=== PATIENT | female | born 1960 | race Caucasian/White ===

== ENCOUNTER 2024-02-11 16:13 | Emergency (ER) | payer MEDICAID, SELFPAY ==
[2024-02-11 16:17] VITALS: BP 168/93; PULSE 76; RESP 17; TEMP 36.6; O2SAT 93; BMI 25.6
[2024-02-11 16:26] VITALS: PULSE 74; RESP 18; O2SAT 96
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
== END 2024-02-11 18:17 | disposition home or self-care (01) ==
PROVIDERS: Emergency Provider Emergency Medicine; PCP Physician Assistant
DX: S13.4XXA Sprain of ligaments of cervical spine, initial encounter (principal); S29.9XXA Unspecified injury of thorax, initial encounter; V89.2XXA Person injured in unspecified motor-vehicle accident, traffic, initial encounter
CPT/HCPCS: 72125; 72128; 99284

== ENCOUNTER → 2024-11-23 | Outpatient (CLI) | payer MEDICAID, SELFPAY ==
--- NOTE | 2024-11-23 15:52 | XR_ITS ---
Examination: Shoulder,left, 3 views Technique: Shoulder AP internal rotation, AP external rotation, Y view shoulder, 3 views Exam date and time :November 23, 2024 1559 hrs., Comparison September 06, 2017 Indications: Left shoulder surgery 2019, multiple replacements with chronic shoulder pain 9 years. Findings: Reverse left shoulder arthroplasty. Satisfactory alignment No fracture No dislocation Impression: Reverse shoulder arthroplasty with satisfactory alignment
== END | disposition home or self-care (01) ==
PROVIDERS: PCP Physician Assistant; Referring Provider Orthopaedic Surgery; Visit Provider Orthopaedic Surgery
DX: M25.512 Pain in left shoulder (principal); Z96.612 Presence of left artificial shoulder joint
CPT/HCPCS: 73030